=== PATIENT | female | born 1940 | race Caucasian/White ===

== ENCOUNTER 2017-02-28 13:56 | Emergency (ER) | payer MEDICARE, MEDICAID ==
[~2017-02-28] VITALS: Ht 165.1 cm; Wt 79.5 kg
[2017-02-28] MEDS ORDERED: CLOPIDOGREL75 MG PO (14:42)
[2017-02-28] MEDS ORDERED: ATORVASTATIN CA20 MG PO (14:42)
[2017-02-28] MEDS ORDERED: LEVOTHYROXIN75 MC1 PO (14:43)
[2017-02-28] MEDS ORDERED: OMEPRAZOLE10 MG PO (14:44)
[2017-02-28] MEDS ORDERED: OXYBUTYNIN CHLO10 MG PO (14:44)
[2017-02-28] MEDS ORDERED: PEPCID20 MG PO (16:26)
[2017-02-28] MEDS ORDERED: MEDDOSEPAK PO (16:26)
[2017-02-28] MEDS ORDERED: FLEXERIL PO (16:26)
[2017-02-28 16:35] VITALS: BP 116/74
== END 2017-02-28 16:35 | disposition home or self-care (01) ==
LOC: ED 13:56
DX: M54.5 Low back pain (principal); G89.29 Other chronic pain; I10 Essential (primary) hypertension; I25.10 Atherosclerotic heart disease of native coronary artery without angina pectoris; G20 Parkinson's disease; Z95.5 Presence of coronary angioplasty implant and graft